=== PATIENT | female | born 1995 | race Caucasian/White ===

== ENCOUNTER 2016-09-02 22:10 | Emergency (ER) | payer OTHER ==
[2016-09-02 22:20] VITALS: BP 120/70; PULSE 78; TEMP 98.1; BMI 18.5
[2016-09-02] MEDS ORDERED: KETOROLAC TROMETHAMINE 60 MG/2 ML VIAL IM ONE (22:22)
[2016-09-02] MEDS ORDERED: METOCLOPRAMIDE HCL 10 MG TABLET (FP) PO ONE ×2 (22:22→22:23)
--- NOTE | 2016-09-02 22:22 | PDOC ---
History of Present Illness - General Chief Complaint: Headache Stated Complaint: HEADACHE Time Seen by Provider: 09/02/16 22:17 History Source: Patient Exam Limitations: No Limitations - History of Present Illness Initial Comments: 09/02/16 22:25 This is a 21-year-old female brought in by her mother for evaluation of a migraine headache. Patient said that she has had an intermittent headache for the last 2 days. Patient took Excedrin for the headache approximately 2 hours prior to coming in but said that it did not relieve it. Patient said that did help but she still has a pounding sensation in her head. He should said this is not the worst headache of her life. Patient denies any neck pain, nausea, photophobia or sensitivity to noise. Patient has a strong family history of migraine . Patient mom gets a high headaches. Patient's mom gets a migraine every month just after her cycle and patient just finished her menstrual cycle when the headache started. Patient denies any fevers or chills or stiff neck. Patient said headache is frontal and throbbing in nature PAST MEDICAL HISTORY: no significant history PAST SURGICAL HISTORY: no significant history FAMILY HISTORY: no pertinant history SOCIAL HISTORY: Pt lives with family and is employed. MEDICATIONS: reviewed ALLERGIES: As per nursing notes Review of Systems General: No fevers or chills, no weakness, no weight loss HEENT: No change in vision. No sore throat,. No ear pain CardioVascular: No chest pain or shortness of breath Respiratory:No cough, or wheezing. Gastrointestinal: no nausea, vomitting, diarrhea or constipation, No rectal bleeding Genitourinary: No dysuria, hematuria, or frequency Musculoskeletal: No joint or muscle pain or swelling Neurologic: No headache, vertigo, dizziness or loss of consciousness Psychiatric: nor depression Skin: No rashes or easy bruising Endocrine: no increased thirst or abnormal weight change Allergic: no skin or latex allergy All other systems reviewed and normal GENERAL: The patient is awake, alert, and fully oriented, in no acute distress. Patient alert, smiling interactive and in no distress here in the emergency room HEAD: Normal with no signs of trauma. EYES: Pupils equal, round and reactive to light, extraocular movements intact, sclera anicteric, conjunctiva clear. Funduscopic exam is normal, there is no photophobia. EXTREMITIES: Normal range of motion, no edema. NEUROLOGICAL: Normal speech, normal gait. PSYCH: Normal mood, normal affect. SKIN: Warm, Dry, normal turgor, no rashes or lesions noted. 09/02/16 22:55 Reevaluation: Patient headache has resolved completely. Patient wants to go home. Assessment and plan: This is a 21-year-old female who denies a history of migraine headaches however comes in with what appears to be a migraine headache and patient has a strong family history of migraine headaches in her mother. Patient treated with Toradol and Reglan with complete resolution of the headache approximately a half hour after receiving the medication. Patient advised to follow-up with her primary care doctor and a neurologist for further evaluation and medications for migraine headaches. Past History - Past Medical History Allergies/Adverse Reactions: Allergies Allergy/AdvReac Type Severity Reaction Status Date / Time No Known Allergies Allergy Verified 09/02/16 22:12 Home Medications: Ambulatory Orders Albuterol Sulfate Inhaler - [Ventolin Hfa Inhaler -] 1 - 2 inh PO QID PRN Metoclopramide HCl [Reglan] 10 mg PO TID #15 tablet 09/02/16 Asthma: Yes - Reproductive History Polycystic Ovaries: Yes Therapeutic (s) & number: No - Immunization History Immunization Up to Date: Yes - Psycho/Social/Smoking Cessation Hx Anxiety: No Suicidal Ideation: No Smoking History: Never smoked Have you smoked in the past 12 months: No Hx Alcohol Use: No Drug/Substance Use Hx: No Substance Use Type: None *DC/Admit/Observation/Transfer Diagnosis at time of Disposition: Migraine Qualifiers: Migraine type: unspecified Status migrainosus presence: without status migrainosus Intractability: not intractable Qualified Code(s): G43.909 - Migraine, unspecified, not intractable, without status migrainosus - Discharge Dispostion Disposition: HOME Condition at time of disposition: Stable Admit: No - Patient Instructions Printed Discharge Instructions: DI for Migraine Additional Instructions: It is important that you follow-up with your primary care doctor and a neurologist for further evaluation and medications for treatment of your migraine. In the meantime take ibuprofen 600 mg for your migraine in addition I'm giving a prescription for Reglan and take one Reglan. You may repeat the Reglan a half hour after the first one if you still have a headache. Return to the emergency department immediately with ANY new, persistent or worsening symptoms. Continue any medications as previously prescribed by your physician. You should follow up with your primary doctor as soon as possible regarding today's emergency department visit. . Please make sure your doctor reviews the results of your emergency evaluation. Thank you for coming to the Emergency Department today for your care. It was a pleasure to see you today. Please note that your evaluation is INCOMPLETE until you follow-up with your doctor.
[2016-09-02] MEDS ORDERED: KETOROLAC TROMETHAMINE 60 MG/2 ML VIAL ONE (22:23)
== END 2016-09-02 23:06 | disposition home or self-care (01) ==
LOC: FER 22:10
PROC: 3E0233Z Introduction of Anti-inflammatory into Muscle, Percutaneous Approach (ICD-10-PCS; principal; 2016-09-02)
DX: G43.909 Migraine, unspecified, not intractable, without status migrainosus (principal)
CPT/HCPCS: 99282-25